=== PATIENT | female | born 1990 | race African-American/Black ===

== ENCOUNTER 2019-02-18 08:32 | Inpatient (IN) | payer OTHER ==
[~2019-02-18] VITALS: Ht 167.6 cm; Wt 82.6 kg
[2019-02-18 10:16] LABS: CLARITY URINE CLEAR (CLEAR); COLOR URINE YELLOW (YELLOW); KETONES URINE TRACE (NEGATIVE); LEUKOCYTE ESTERASE URINE NEGATIVE (NEGATIVE); NITRITE URINE NEGATIVE (NEGATIVE); OCCULT BLOOD URINE 3+ (NEGATIVE); PROTEIN URINE TRACE (NEGATIVE); SPECIFIC GRAVITY URINE 1.025 (1.005-1.030)
[2019-02-18] MEDS: LACTATED RINGERS 1,000 ML IV SCH (16:14)
[2019-02-18] MEDS ORDERED: LIDOCAINE HCL 1% 20ML VIAL (Pyxis) INJ INFIL SCH (16:15)
[2019-02-18] MEDS ORDERED: METHYLERGONOVINE MALEATE 0.2 MG/ML IM PRN (16:15)
[2019-02-18] MEDS ORDERED: NALOXONE HCL 0.4 MG/ML 1ML VIAL IV PRN (16:15)
[2019-02-18] MEDS ORDERED: BUTORPHANOL TARTRATE 2 MG/ML VIAL IV PRN (16:15)
[2019-02-18 16:54] LABS: BASOPHILS % 0.6 % (0.0-2.0); HEMATOCRIT. 39.1 % (36.0-48.0); HEMOGLOBIN. 12.5 g/dL (12.0-16.0); LYMPHOCYTES % 20.5 % (20.0-50.0); MEAN CORPUSCULAR VOLUME 81.8 fL (81.0-99.0); MEAN PLATELET VOLUME 10.8 fl (7.4-10.4); MONOCYTES % 9.6 % (2.0-8.0); NEUTROPHILS % 68.3 % (40.0-76.0); PLATELET 142 x1000/uL (130-400); RED BLOOD CELL COUNT 4.79 mill/uL (4.2-5.4); RED CELL DISTRIBUTION WIDTH 15.7 % (11.6-14.6)
[2019-02-18 16:57] LABS: INR 0.9; PARTIAL THROMBOPLASTIN TIME 27.9 sec (23.4-31.0); PROTHROMBIN TIME 9.6 sec (9.6-11.0)
[2019-02-18 17:27] LABS: HEPATITIS B SURFACE ANTIGEN NEGATIVE
[2019-02-18] MEDS ORDERED: DINOPROSTONE 10MG VAGINAL INSERT VG PRN (18:16)
[2019-02-19] MEDS ORDERED: DEXT 5%/LR + PITOCIN 20UNITS/L 1,000 ML IV SCH (08:17)
[2019-02-19] MEDS ORDERED: BUTORPHANOL TARTRATE 2 MG/ML VIAL IV PRN (08:30)
[2019-02-19] MEDS: LACTATED RINGERS 1,000 ML IV SCH ×4 (08:59→23:03)
[2019-02-19] MEDS ORDERED: MISOPROSTOL 100MCG TABLET VG PRN (09:45)
[2019-02-19] MEDS: MISOPROSTOL 100MCG TABLET PO PRN ×2 (10:40→17:05)
[2019-02-19 13:14] LABS: *AMPHETAMINES SCREEN URINE NEGATIVE (NEGATIVE); *BARBITURATES SCREEN URINE NEGATIVE (NEGATIVE); *BENZODIAZEPINES SCREEN URINE NEGATIVE (NEGATIVE); *COCAINE SCREEN URINE NEGATIVE (NEGATIVE); METHADONE URINE SCREEN NEGATIVE (NEGATIVE)
[2019-02-19 13:15] LABS: CANNABINOID URINE SCREEN NEGATIVE (NEGATIVE); OPIATES URINE SCREEN NEGATIVE (NEGATIVE); PHENCYCLIDINE URINE SCREEN NEGATIVE (NEGATIVE)
[2019-02-19] MEDS ORDERED: ROPIVACAINE HCL 10MG/ML 20 ML VIAL EPI ONE (20:00)
[2019-02-19] MEDS ORDERED: ROPIVACAINE HCL/PF EPIDURAL 200 ML EPI PRN (20:15)
[2019-02-19] MEDS ORDERED: FENTANYL CITRATE/PF 50MCG/ML 2ML VIAL ONE (21:04)
[2019-02-20] MEDS: LACTATED RINGERS 1,000 ML IV SCH (03:02)
[2019-02-20] MEDS ORDERED: RHO(D) IMMUNE GLOBULIN 300 MCG/SYR IM PRN (04:45)
[2019-02-20] MEDS ORDERED: BENZOCAINE/LANOLIN/ALOE VERA SPRAY TOP PRN (04:45)
[2019-02-20] MEDS ORDERED: LANOLIN OINT 0.25 GM TUBE TOP PRN (04:45)
[2019-02-20] MEDS ORDERED: HEMORRHOIDAL SUPP PR PRN (04:45)
[2019-02-20] MEDS ORDERED: BISACODYL 10MG SUPP PR PRN (04:45)
[2019-02-20] MEDS ORDERED: IBUPROFEN 800MG TABLET PO PRN (04:45)
[2019-02-20] MEDS ORDERED: IBUPROFEN 400MG TABLET PO PRN (04:45)
[2019-02-20] MEDS ORDERED: DIPHENHYDRAMINE 25MG CAPSULE PO PRN (04:45)
[2019-02-20] MEDS ORDERED: ACETAMINOPHEN WITH CODEINE 300/30MG TABLET PO PRN (04:45)
[2019-02-20] MEDS ORDERED: GLYCERIN/WITCH HAZEL LEAF MEDICATED PAD TOP PRN (04:45)
[2019-02-20] MEDS ORDERED: DEXT 5%/LR + PITOCIN 20UNITS/L 1,000 ML IV SCH (05:30)
[2019-02-20 05:50] VITALS: BP 89/47
[2019-02-20 06:30] VITALS: BP 90/52
[2019-02-20 08:00] VITALS: BP 114/63
[2019-02-20] MEDS ORDERED: TETANUS, DIPHTHERIA, PERTUSSIS VAC/PF 0.5ML (>7YR OLD) IM ONE (08:00)
[2019-02-20 08:11] LABS: HEMATOCRIT. 30.2 % (36.0-48.0); HEMOGLOBIN. 9.7 g/dL (12.0-16.0); MEAN CORPUSCULAR VOLUME 80.9 fL (81.0-99.0); PLATELET 120 x1000/uL (130-400); RED BLOOD CELL COUNT 3.73 mill/uL (4.2-5.4); RED CELL DISTRIBUTION WIDTH 14.9 % (11.6-14.6)
[2019-02-20] MEDS: PRENATAL VIT/FE FUMARATE/FA TABLET PO SCH (09:20)
[2019-02-20] MEDS: SIMETHICONE 80MG TABLET CHEW PO SCH (09:20)
[2019-02-20] MEDS ORDERED: INFLUENZA VIRUS VACCINE(AFLURIA) 0.5ML SYR IM ONE (10:00)
[2019-02-20 15:50] LABS: PLATELET ESTIMATE SLIGHTLY DECREASED
[2019-02-20 16:01] VITALS: BP 106/52
[2019-02-20 20:00] VITALS: BP 100/54
[2019-02-20] MEDS: DOCUSATE SODIUM 100MG CAPSULE PO SCH (22:59)
[2019-02-21 04:00] VITALS: BP 112/60
[2019-02-21] MEDS ORDERED: FERROUS SULFATE 325MG TABLET PO SCH (07:30)
[2019-02-21 08:00] VITALS: BP 106/64
[2019-02-21] MEDS ORDERED: MEDROXYPROGESTERONE ACETATE 150MG/ML VIAL IM NR (11:30)
[2019-02-21 16:00] VITALS: BP 111/73
[2019-02-21 19:45] VITALS: BP 103/70
[2019-02-21] MEDS: DOCUSATE SODIUM 100MG CAPSULE PO SCH (21:00)
[2019-02-22 04:09] VITALS: BP 101/65
[2019-02-22 08:25] VITALS: BP 116/68
[2019-02-22] MEDS: PRENATAL VIT/FE FUMARATE/FA TABLET PO SCH (09:11)
[2019-02-22] MEDS: SIMETHICONE 80MG TABLET CHEW PO SCH (09:12)
[2019-02-22 14:38] VITALS: BP 116/68
== END 2019-02-22 13:00 | disposition home or self-care (01) | DRG 560 ==
LOC: 8 EST LDRP 08:32 → OBSVTOIN 08:32 → 8EST 02-20 05:25
PROVIDERS: ADMIT Specialist; ATTEND Obstetrics & Gynecology
PROC: 10D07Z6 Extraction of Products of Conception, Vacuum, Via Natural or Artificial Opening (ICD-10-PCS; principal; 2019-02-20)
PROC: 0W8NXZZ Division of Female Perineum, External Approach (ICD-10-PCS; 2019-02-20)
PROC: 3E0234Z Introduction of Serum, Toxoid and Vaccine into Muscle, Percutaneous Approach (ICD-10-PCS; 2019-02-20)
PROC: 3E0R3BZ Introduction of Anesthetic Agent into Spinal Canal, Percutaneous Approach (ICD-10-PCS; 2019-02-20)
PROC: 00HU33Z Insertion of Infusion Device into Spinal Canal, Percutaneous Approach (ICD-10-PCS; 2019-02-20)
DX: O41.03X0 Oligohydramnios, third trimester, not applicable or unspecified (principal); O26.893 Other specified pregnancy related conditions, third trimester; O99.02 Anemia complicating childbirth; O69.81X0 Labor and delivery complicated by cord around neck, without compression, not applicable or unspecified; Z3A.39 39 weeks gestation of pregnancy; Z67.31 Type AB blood, Rh negative; Z37.0 Single live birth; O76 Abnormality in fetal heart rate and rhythm complicating labor and delivery
CPT/HCPCS: 36415; 76815; 76818; 80305; 86592; 86762; 86850; 86870; 86886; 86900; 87340; 90384; 90715; 99281; J0595; J1050; J2590; J2795; J3010; J7120